=== PATIENT | female | born 1980 | race Caucasian/White ===

== ENCOUNTER 2023-05-19 18:07 | Emergency (ER) | payer OTHER ==
[2023-05-19 18:20] VITALS: TEMP 98.8
[2023-05-19] MEDS ORDERED: LIDOCAINE 1% INJ 10MG/ML (30 ML VIAL-PF) SQ ONE (19:22)
[2023-05-19] MEDS ORDERED: AMOXIC-POT CLAV 875-125MG 1 EACH TAB PO STA (19:23)
--- NOTE | 2023-05-19 19:27 | ED ---
Animal Bite HPI - General Chief Complaint: Animal Bite Stated Complaint: dog bite Time Seen by Provider: 05/19/23 19:03 Source: patient, RN notes reviewed, old records reviewed Mode of arrival: ambulatory Limitations: no limitations - History of Present Illness Initial Comments: This is a nontoxic-appearing 42-year-old female that presents to the emergency room with complaints of being bitten by her great León attempting to break up a dog fight at 1800 today. Patient states she was bitten to her right finger and right forearm. Denies any other injuries. States has severe anxiety but denies any other medical history. States her tetanus shot is not up-to-date. MD Complaint: animal bite (her dog [place]) -: hour(s) (1) Right: Forearm, Hand Animal: dog Description: household pet Mechanism: bite Severity scale (1-10): 10 Context: animals fighting Associated Symptoms: none - Related Data Patient Tetanus UTD: No Previous Rx's Medication Instructions Recorded Amoxic-Pot Clav 875-125Mg 1 tab PO BID 5 Days #10 tab 05/19/23 [Augmentin 875-125] Allergies Allergy/AdvReac Type Severity Reaction Status Date / Time No Known Allergies Allergy Verified 05/19/23 19:41 Review of Systems ROS Statement: Those systems with pertinent positive or pertinent negative responses have been documented in the HPI. ROS Other: All systems not noted in ROS Statement are negative. Past Medical History History of Any Multi-Drug Resistant Organisms: None Reported Past Psychological History: Anxiety, Depression Smoking Status: Current every day smoker Past Alcohol Use History: None Reported Past Drug Use History: None Reported General Exam Limitations: no limitations Course Vital Signs 05/19/23 05/19/23 18:18 20:59 Temperature 98.8 F Pulse Rate 113 H 84 Respiratory 18 20 Rate Blood Pressure 154/100 145/82 O2 Sat by Pulse 100 Oximetry Procedures - Laceration Laceration #1 Consent Obtained: verbal consent Indication: laceration Site: hand Size (cm): 1 Description: linear Depth: simple, single layer Anesthetic Used: lidocaine 1% Anesthesia Technique: local infiltration Pre-repair: irrigated extensively Type of Sutures: nylon Size of Sutures: 4-0 Number of Sutures: 2 Technique: simple, interrupted Patient Tolerated Procedure: well, no complications Laceration #2 Consent Obtained: verbal consent Indication: laceration Site: upper extremity Size (cm): 1 Description: linear Depth: simple, single layer Anesthetic Used: lidocaine 1% Anesthesia Technique: local infiltration Pre-repair: irrigated extensively Type of Sutures: nylon Size of Sutures: 4-0 Number of Sutures: 1 Technique: simple, interrupted Patient Tolerated Procedure: well, no complications Laceration #3 Consent Obtained: verbal consent Indication: laceration Site: upper extremity Size (cm): 4 Description: linear Depth: simple, single layer Anesthetic Used: lidocaine 1% Anesthesia Technique: local infiltration Pre-repair: irrigated extensively Type of Sutures: nylon Size of Sutures: 4-0 Number of Sutures: 3 Technique: simple, interrupted Patient Tolerated Procedure: well, no complications Laceration #4 Consent Obtained: verbal consent Indication: laceration Site: upper extremity Size (cm): 5 Description: flap, irregular Depth: simple, single layer Anesthetic Used: lidocaine 1% Anesthesia Technique: local infiltration Pre-repair: wound explored, irrigated extensively, wound margins revised Type of Sutures: nylon Size of Sutures: 4-0 Number of Sutures: 5 Technique: simple, interrupted Patient Tolerated Procedure: well, no complications Medical Decision Making - Medical Decision Making Was pt. sent in by a medical professional or institution (, PA, DIRECTOR OF INTERCOLLEGIATE ATHLETICS, urgent care, hospital, or shelter...) When possible be specific @ -No Did you speak to anyone other than the patient for history (EMS, parent, family, police, friend...)? What history was obtained from this source @ -No Did you review nursing and triage notes (agree or disagree)? Why? @ -I reviewed and agree with nursing and triage notes Were old charts reviewed (outside hosp., previous admission, EMS record, old EKG, old radiological studies, urgent care reports/EKG's, shelter records)? Report findings @ -No old charts were reviewed Differential Diagnosis (chest pain, altered mental status, abdominal pain women, abdominal pain men, vaginal bleeding, weakness, fever, dyspnea, syncope, headache, dizziness, GI bleed, back pain, seizure, CVA, palpatations, mental health, musculoskeletal)? @ -Dog bite, laceration, foreign body, fracture EKG interpreted by me (3pts min.). @ -n/a X-rays interpreted by me (1pt min.). @ -yes X-ray of the right forearm interpreted by me shows no evidence of fracture or foreign body. X-ray of the right hand interpreted by me shows soft tissue swelling and no evidence of fracture or dislocation. CT interpreted by me (1pt min.). @ -None done U/S interpreted by me (1pt. min.). @ -None done What testing was considered but not performed or refused? (CT, X-rays, U/S, labs)? Why? @ -None What meds were considered but not given or refused? Why? @ -Pain medication, Tetanus and antibiotics were offered and patient refused both Did you discuss the management of the patient with other professionals (professionals i.e. , PA, DIRECTOR OF INTERCOLLEGI[employer]THLET[employer], lab, RT, psych nurse, neonatal social worker, public health technologist, teacher, chemistry technical officer, rifle case repairer)? Give summary @ -No Was smoking cessation discussed for >3mins.? @ -No Was critical care preformed (if so, how long)? @ -No Were there social determinants of health that impacted care today? How? (Homelessness, low income, unemployed, alcoholism, drug addiction, transportation, low edu. Level, literacy, decrease access to med. care, custodial, rehab)? @ -No Was there de-escalation of care discussed even if they declined (Discuss DNR or withdrawal of care, Hospice)? DNR status @ -No What co-morbidities impacted this encounter? (DM, HTN, Smoking, COPD, CAD, Cancer, CVA, ARF, Chemo, Hep., AIDS, mental health diagnosis, sleep apnea, morbid obesity)? @ -Anxiety, smoker Was patient admitted / discharged? Hospital course, mention meds given and route, prescriptions, significant lab abnormalities, going to OR and other pertinent info. @ -Discharged This is a tearful nontoxic-appearing 42-year-old female that presents to the emergency room with complaints of being bitten by her great León attempting to break up a dog fight at 1800 today. Patient states she was bitten to her right finger and right forearm. Denies any other injuries. States has severe anxiety but denies any other medical history. States her tetanus shot is not up-to-date. Patient was offered pain medication and declined. Ring to right ring finger was cut and removed at patient request. She refused a dose of antibiotics and a tetanus shot. Patient does have full range of motion of the hand. Right ring finger limited movement due to swelling. Radiologist interpretation x-ray right forearm no evidence of acute fracture. Soft tissue lacerations without evidence of radiopaque foreign body. Radiologist's interpretation x-ray right hand shows no acute osseous pathology. Multiple tiny opacities predominantly involving the webspace between the third and fourth digit which could represent radiopaque foreign bodies. Patient was covered in mud and dog hair. Wounds were irrigated copiously with saline and loosely closed. Patient was directed to put a thin layer of bacitracin on wounds once a day for the next 3 days and keep covered. Take antibiotics as prescribed. Follow-up with her primary care doctor on Wednesday. Strict return parameters were discussed for drainage, fever or increased pain. She is agreeable to this plan of care. Case discussed with Dr. Trinidad Undiagnosed new problem with uncertain prognosis? @ -No Drug Therapy requiring intensive monitoring for toxicity (Heparin, Nitro, Insulin, Cardizem)? @ -No Were any procedures done? @ -Multiple Laceration repairs Diagnosis/symptom? @ -Dog bite, multiple lacerations, puncture wounds Acute, or Chronic, or Acute on Chronic? @ -Acute Uncomplicated (without systemic symptoms) or Complicated (systemic symptoms)? @ -Uncomplicated Side effects of treatment? @ -No Exacerbation, Progression, or Severe Exacerbation? @ -No Poses a threat to life or bodily function? How? (Chest pain, [place], [place], pneumonia, PE, COPD, DKA, ARF, appy, cholecystitis, CVA, Diverticulitis, Homicidal, Suicidal, threat to staff... and all critical care pts) @ -No Disposition Clinical Impression: Dog bite Disposition: HOME SELF-CARE Condition: Good Instructions (If sedation given, give patient instructions): Animal Bite (ED) Additional Instructions: We offered to update your tetanus shot today and you declined. It is important keep up-to-date on your tetanus shot. Take antibiotics as prescribed to prevent infection. Follow-up with your primary care doctor next week for reevaluation. Return to the emergency room with any signs of infection including drainage, fevers or increased pain. Prescriptions: Amoxic-Pot Clav 875-125Mg [Augmentin 875-125] 1 tab PO BID 5 Days #10 tab Is patient prescribed a controlled substance at d/c from ED?: No Referrals: Guillermo Marie MD [Primary Care Provider] - 1-2 days Time of Disposition: 20:48
[2023-05-19] MEDS: DIPH,PERTUS(ACELL)TETVAC-LF 0.5 ML VIAL IM ONE ×2 (19:35→19:45)
--- NOTE | 2023-05-19 20:45 | XR ---
EXAMINATION TYPE: XR forearm RT DATE OF EXAM: 05/19/2023 8:16 PM INDICATION: Patient age:Female; 42 years old; Reason for study: dog bite pain [place]; COMPARISON: None TECHNIQUE: The right forearm was examined in AP and lateral projections. FINDINGS: No acute osseous pathology, soft tissue swelling or joint dislocations are seen. No radiop aque foreign body. Soft tissue laceration over the dorsal aspect and volar aspect of the forearm. IMPRESSION: 1. No evidence of acute fracture. 2. Soft tissue lacerations without evidence of radiopaque foreign body.
[2023-05-19] MEDS ORDERED: BACITRACIN OINT 1 EACH PACKET TOPICAL ONE (20:48)
--- NOTE | 2023-05-19 20:50 | XR ---
EXAMINATION TYPE: XR hand limited RT DATE OF EXAM: 05/19/2023 8:16 PM INDICATION: Patient age:Female; 42 years old; Reason for study: dog bite pain [place]; COMPARISON: None TECHNIQUE: Frontal, lateral and oblique views of the right hand were obtained. FINDINGS: Soft tissue swelling involving the web space between the third and fourth digits with suspe cted soft tissue injury of the fourth digit. There is tiny opacities seen throughout the proximal por tion of the fourth digit. In the third digit ulnar aspect. No evidence of fracture no evidence of dis location. IMPRESSION: 1. No acute osseous pathology. 2. Multiple tiny opacities predominantly involving the web space between the third and fourth digit which could represent radiopaque foreign bodies.
[2023-05-19 21:01] VITALS: BP 145/82; PULSE 84; RESP 20
== END 2023-05-19 21:19 | disposition home or self-care (01) ==
LOC: EC 18:07
DX: S61.219A Laceration without foreign body of unspecified finger without damage to nail, initial encounter (principal); F17.200 Nicotine dependence, unspecified, uncomplicated; Z86.59 Personal history of other mental and behavioral disorders; W54.0XXA Bitten by dog, initial encounter
CPT/HCPCS: 73090; 73120; 99283; 12004; J2001; 90715